=== PATIENT | male | born 1955 | race Caucasian/White ===

== ENCOUNTER 2016-08-04 07:48 | Day surgery (SDC) | payer OTHER ==
[2016-08-01 12:27] VITALS: BMI 22.8
[~2016-08-04] VITALS: Ht 193 cm; Wt 83.1 kg
[2016-08-04] VITALS (11 sets, daily range): BP systolic 110–139; BP diastolic 67–83; PULSE 64–85; RESP 11–21; Ht 193 cm; Wt 83.1 kg
[~2016-08-04 07:48] MED LIST: CEFAZOLIN 2 GM/50 ML (PMX) 50 ML IVPB ONE; SOD CHLORIDE 0.9% 1,000 ML IV SCH
[2016-08-04] MEDS ORDERED: BUPR300T48 PO (08:23)
[2016-08-04] MEDS ORDERED: BUPIVACAINE 0.25% (MPF) 30 ML INJ ONE (08:52)
[2016-08-04] MEDS ORDERED: POLYMYXIN/BACITRACIN 1L IRRIG ONE (08:52)
[2016-08-04] MEDS ORDERED: METOCLOPRAMIDE 10 MG INJ ONE (09:04)
[2016-08-04] MEDS ORDERED: ROCURONIUM 50 MG INJ ONE (09:04)
[2016-08-04] MEDS ORDERED: GLYCOPYRROLATE 0.4 MG INJ ONE (09:04)
[2016-08-04] MEDS ORDERED: NEOSTIGMINE 3 MG/3 ML SYRINGE ONE (09:04)
[2016-08-04] MEDS ORDERED: PROPOFOL 20 ML ONE (09:04)
[2016-08-04] MEDS ORDERED: MIDAZOLAM 1 MG/ML 2 ML INJ ONE (09:04)
[2016-08-04] MEDS ORDERED: CEFAZOLIN 1 GM INJ ONE (09:18)
[2016-08-04] MEDS ORDERED: HYDROmorphONE (0.2 MG/ML) 10ML SYG IV PRN ×3 (09:30)
[2016-08-04] MEDS ORDERED: OXYCODONE/ACETAMINOPHEN (5/325) TAB PO PRN ×2 (09:30)
[2016-08-04] MEDS ORDERED: MEPERIDINE 25 MG INJ IV PRN (09:30)
[2016-08-04] MEDS ORDERED: DIPHENHYDRAMINE 50 MG INJ IV PRN (09:30)
[2016-08-04] MEDS ORDERED: ONDANSETRON 4 MG INJ IV PRN (09:30)
[2016-08-04] MEDS ORDERED: METOCLOPRAMIDE 10 MG INJ IV PRN (09:30)
[2016-08-04] MEDS ORDERED: HYDROmorphONE 2 MG/ML SYG ONE (09:36)
[2016-08-04] MEDS ORDERED: ROPIVACAINE 0.2% 20 ML VIAL ONE (09:37)
[2016-08-04] MEDS ORDERED: KETOROLAC 30 MG INJ ONE (09:46)
[2016-08-04] MEDS ORDERED: HYDROCODONE/APAP (5/325) TAB PO ONE (10:00)
--- NOTE | 2016-08-04 12:33 | OPR ---
DATE OF OPERATION: 08/04/2016 INDICATION: This is a 61-year-old male with incarcerated ventral hernia. He requests surgical repa ir. Risks, alternatives, benefits, and personnel were discussed with the patient. Patient expresse d understanding and consents to the operation. PREOPERATIVE DIAGNOSIS: Incarcerated ventral hernia. POSTOPERATIVE DIAGNOSIS: Incarcerated ventral hernia. OPERATION PERFORMED: Laparoscopic incarcerated ventral hernia repair with 10 x [address] mesh. SURGEON: Beto Francisco MD MORTGAGE SPECIALIST: Dennise Mckeon MD SPECIMENS: None. COMPLICATIONS: None. ANESTHESIA: General. PROCEDURE: The patient was taken to the OR, prepped and draped in the usual sterile fashion. Surgi melissa timeout was performed. IV antibiotics were given. Left upper quadrant 5 mm transverse incision is made with a 15 blade. Using a 5 mm optical trocar, optical entry was performed. Pneumoperitone um was established. Left flank 12 mm optical trocar and left lower quadrant 5 mm optical trocars ar e placed under direct visualization. Upon initial inspection, there was incarcerated ventral hernia contents. This is excised and reduced laparoscopically using laparoscopic Harmonic. The incarcera marixa contents were removed through the 12 port. The ventral hernia defect was identified and closed with interrupted #1 Prolene using Endoclose and laparoscopic techniques. Underlay mesh with approxi mately 4 to 5 cm of coverage in all directions was secured in place with SecureStrap. There was goo d hemostasis. Ports were removed under direct visualization. Skin was closed using skin aviva. Local anesthesia was injected. Dry dressings were applied. Dictated By: BETO SMITH/ALEX Conf#: [id number] DID#: [id number]
== END 2016-08-04 11:41 | disposition home or self-care (01) ==
LOC: SDS 07:48
PROVIDERS: ATTEND Surgery
DX: K43.6 Other and unspecified ventral hernia with obstruction, without gangrene (principal)
CPT/HCPCS: 49653; C1781; J0690; J1170; J1885; J2175; J2250; J2405; J2710; J2765; J2795; Z7512; Z7610